=== PATIENT | female | born 1955 | race Caucasian/White ===

== ENCOUNTER 2016-06-22 09:21 | Outpatient (CLI) | payer MEDICARE, MEDICAID ==
[2016-06-22 10:53] LABS: ALT (SGPT) 12 U/L (0-55); AST (SGOT) 17 U/L (5-34); Albumin 3.9 g/dL (3.4-4.8); Alkaline Phosphatase 145 U/L (40-150); Anion Gap 13 mmol/L (10-20); BUN (Urea Nitrogen) 13 mg/dL (9.8-20.1); Bilirubin, Total 0.6 mg/dL (0.2-1.2); Calc. Creatinine Clearance 0 mL/min (70-130); Calcium 9.8 mg/dL (7.8-10.44); Carbon Dioxide 27 mmol/L (23-31); Cardiac Risk 2.6 (Less than 4.5); Chloride 106 mmol/L (98-107); Cholesterol 125 mg/dL (< 200 Desired); Estimated GFR-MDRD 67; Globulin 2.4 g/dL (2.4-3.5); Glucose 77 mg/dL (80-115); HDL Cholesterol 48 mg/dL (>60 Neg Risk); LDL Cholesterol, Calculated 62 mg/dL; Potassium 3.9 mmol/L (3.5-5.1); Protein, Total 6.3 g/dL (5.8-8.1); Sodium 142 mmol/L (136-145); Triglycerides 76 mg/dL (Less than 150)
[2016-06-22 10:54] LABS: #Basophils 0.1 thou/uL (0.0-0.2); #Eosinphils 0.1 thou/uL (0.0-0.7); #Lymphocytes 1.8 thou/uL (1.20-3.40); #Monocytes 0.5 thou/uL (0.11-0.59); #Neutrophils 4.2 thou/uL (1.40-6.50); %Basophils 1.1 % (0.0-1.0); %Eosinophils 1.8 % (0.0-10.0); %Lymphocytes 27.2 % (21.0-51.0); %Monocytes 7.2 % (0.0-10.0); %Neutrophils 62.8 % (42.0-75.0); Hemoglobin 12.1 g/dL (12.0-16.0); Mean Corpuscular HGB CONC 32.2 g/dL (32.0-36.0); Mean Corpuscular Volume 80.9 fl (81.0-99.0); Mean Platelet Volume 8.6 fL (7.4-10.4); Platelet Count 223 thou/uL (130-400); RBC Distribution Width 14.9 % (11.5-14.5); Red Blood Cell (RBC) Count 4.66 mill/uL (4.20-5.40); White Blood Cell (WBC) Count 6.7 thou/uL (4.8-10.8)
[2016-06-22 11:24] LABS: Hemoglobin A1c 6.3 % (4.0-6.0)
== END 2016-06-22 09:22 | disposition home or self-care (01) ==
LOC: HPCALD 09:21
PROVIDERS: ATTEND Family Medicine
DX: E78.5 Hyperlipidemia, unspecified (principal); E11.9 Type 2 diabetes mellitus without complications; I10 Essential (primary) hypertension; E53.8 Deficiency of other specified B group vitamins
CPT/HCPCS: 36415; 80053; 80061; 82607; 83036; 85025

== ENCOUNTER 2017-01-11 16:49 | Emergency (ER) | payer MEDICARE, MEDICAID ==
[2017-01-11 17:37] LABS: CKMB 4.4 ng/mL (0-6.6); Troponin I Less than 0.010 ng/mL (< 0.028)
[2017-01-11 17:48] LABS: Bilirubin Negative (Negative); Blood, Urine Negative (Negative); Clarity Clear (Clear); Glucose, Urine (Dipstick) 100 mg/dL (Negative); Leukocyte Trace (Negative); Nitrite Negative (Negative); Protein, Urine (Dipstick) Negative (Neg-Trace); Specific Gravity, Urine 1.015 (1.005-1.030); Urobilinogen 0.2 mg/dL (0.2-1.0); pH, Urine 6.5 (5.0-9.0)
[2017-01-11 17:59] LABS: Bacteria/HPF 1+ HPF (None Seen); RBC/HPF 0-3 HPF (0-3); Renal Epithelial None Seen HPF (0-3); Squamous Epithelial None Seen HPF (0-3); Transitional Epithelial NONE SEEN HPF (0-3); WBC/HPF 0-3 HPF (0-3)
[2017-01-11 18:00] LABS: Crystals/HPF None Seen HPF (Negative); Hyaline Casts/LPF NONE SEEN LPF (0-3 Hyaline); Other Casts/LPF None Seen LPF (0-3 Hyaline); Oval Fat Bodies/HPF None Seen HPF (None Seen); Sperm/HPF None Seen HPF (None Seen); Trichomonas/HPF None Seen HPF (None Seen); Yeast-All Forms None Seen HPF (None Seen)
[2017-01-11] MEDS ORDERED: traMADol HCl 50 MG TAB ONE (18:10)
--- NOTE | 2017-01-11 18:23 | RAD ---
LEFT KNEE FOUR VIEWS 01/11/17 There is no large joint effusion or obvious fracture. Medial joint space narrowing and osteophytes ar e present. A rounded bony calcification posterior to the knee could be a loose body in the joint. It could be a synovial chondroma as well. The patellofemoral joint shows degenerative change. IMPRESSION: Moderately severe degenerative changes but no acute traumatic finding. POS: HOME
--- NOTE | 2017-01-11 18:36 | RAD ---
LEFT RIBS WITH PA CHEST 01/11/17 Comparison is made with prior studies, including rib films from February 2013. Fractures of at least the left 6th and 7th, possibly 8th, ribs are noted but they appear old and are seen on the prior study. There were no definite new fractures identified, however, the patient's oste openia is such that it could easily mask subtle injuries. The heart is mildly enlarged but no more so than before. The lungs are clear. No infiltrate, effusion or pneumothorax was seen. Severe degenerative changes are see in the left glenohumeral joint. IMPRESSION: Old fractures noted but no acute changes were appreciated. POS: HOME
== END 2017-01-11 18:17 | disposition home or self-care (01) ==
LOC: BURERS 16:49
DX: S22.42XA Multiple fractures of ribs, left side, initial encounter for closed fracture (principal); E78.5 Hyperlipidemia, unspecified; M81.0 Age-related osteoporosis without current pathological fracture; E11.9 Type 2 diabetes mellitus without complications; I10 Essential (primary) hypertension; M19.90 Unspecified osteoarthritis, unspecified site; F41.9 Anxiety disorder, unspecified; F32.9 Major depressive disorder, single episode, unspecified; Z79.84 Long term (current) use of oral hypoglycemic drugs; Z79.899 Other long term (current) drug therapy; W19.XXXA Unspecified fall, initial encounter
CPT/HCPCS: 81003; 81015; 82553; 84484; 93005

== ENCOUNTER 2017-01-26 10:06 | Outpatient (CLI) | payer MEDICARE, MEDICAID ==
--- NOTE | 2017-01-26 14:12 | RAD ---
LEFT HAND THREE VIEWS: HISTORY: Fall. Left hand injury. FINDINGS: Degenerative changes and small heterotopic foci of calcification are apparent. No acute fracture, di slocation, or metallic foreign bodies are visible. IMPRESSION: No acute osseous abnormalities are demonstrated. POS: [facility]
== END 2017-01-26 10:07 | disposition home or self-care (01) ==
LOC: BURRAD 10:06
PROVIDERS: ATTEND Family Medicine
DX: M79.642 Pain in left hand (principal)

== ENCOUNTER 2017-12-21 16:32 | Outpatient (CLI) | payer MEDICARE, OTHER ==
--- NOTE | 2017-12-25 08:08 | RAD ---
LUMBAR SPINE 3 VIEWS: Date: 12/22/17 Three views are compared with the 04/19/12 study. While there are degenerative changes throughout the spine consisting of osteophytes, all of them have grown larger over time. There is evidence of degen erative disc disease, particularly at L2-L3 and L3-L4. The superior end plate of L4 is irregular and sclerotic, a new finding since 2012. This potentially c ould be due to impending compression. Infection seems less likely. Degenerative change might cause th is. In view of the patient's symptoms, I would recommend doing a MRI for follow-up of this finding. F acet arthritis is prominent in the lower lumbar spine. The SI joints were symmetrical. There is very slight curvature to the spine convex left. IMPRESSION: 1. Interval increase in osteophyte sizes and multilevel degenerative disc disease. 2. Irregular slightly sclerotic superior end plate of L4, a new finding. Most likely due to a mild c ompression. Given the symptoms, MRI is suggested. CODE T. POS: HOME
== END 2017-12-21 16:33 | disposition home or self-care (01) ==
LOC: BURRAD 16:32
PROVIDERS: ATTEND Nurse Practitioner Family
DX: M51.16 Intervertebral disc disorders with radiculopathy, lumbar region (principal); M25.78 Osteophyte, vertebrae
CPT/HCPCS: 72100

== ENCOUNTER 2018-03-06 15:01 | Outpatient (CLI) | payer MEDICARE, MEDICAID ==
--- NOTE | 2018-03-06 19:53 | RAD ---
LEFT KNEE FOUR VIEWS: 03/06/2018 COMPARISON: 01/11/2017 FINDINGS: Degenerative changes are prominent in the knee, as before, with medial joint space narrowing and sign ificant osteophytes. The appearance is fairly similar, with only minor changes over time. No fractu re or large joint effusion is seen. As before, there is a clump of calcifications in the popliteal r egion, though to be either loose bodies or synovial chondroma. This has perhaps calcified a little m ore and become a little more prominent since 2017, but it still has a rather benign appearance. Demetri r-the-less, if any procedure were planned on this patient's knee, due to her severe arthritis, these could be looked at as well. IMPRESSION: 1. Moderately severe osteoarthritis, similar to 2017. 2. Popliteal calcific densities again noted, slightly larger. Loose bodies or synovial chondroma se em most likely. POS: HOME
== END 2018-03-06 15:02 | disposition home or self-care (01) ==
LOC: BURRAD 15:01
PROVIDERS: ATTEND Family Medicine
DX: M25.562 Pain in left knee (principal); M17.12 Unilateral primary osteoarthritis, left knee; I77.89 Other specified disorders of arteries and arterioles

== ENCOUNTER 2020-09-07 10:01 | Outpatient (CLI) | payer MEDICARE, MEDICAID ==
[~2020-09-07 10:01] MED LIST: Iopamidol 370 76% 100 ML VIAL ONE
== END 2020-09-07 10:02 | disposition home or self-care (01) ==
LOC: BURCT 10:01
PROVIDERS: ATTEND Family Medicine
DX: R91.8 Other nonspecific abnormal finding of lung field (principal)
CPT/HCPCS: 71260; 82565; Q9967

== ENCOUNTER 2021-01-09 07:42 | Emergency (ER) | payer MEDICARE, OTHER ==
[2021-01-09] MEDS ORDERED: Ibuprofen 200 MG TAB ONE (08:22)
[2021-01-09] MEDS ORDERED: Acetaminophen 325 MG TAB ONE (08:22)
[2021-01-09] MEDS ORDERED: Metoclopramide HCl 10 MG TAB ONE (11:27)
== END 2021-01-09 09:03 | disposition home or self-care (01) ==
LOC: BURERS 07:42
DX: S22.31XA Fracture of one rib, right side, initial encounter for closed fracture (principal); I10 Essential (primary) hypertension; E78.00 Pure hypercholesterolemia, unspecified; W19.XXXA Unspecified fall, initial encounter
CPT/HCPCS: 71250

== ENCOUNTER 2021-04-08 09:18 | Outpatient (CLI) | payer MEDICARE, OTHER ==
[2021-04-08] MEDS ORDERED: Iopamidol 370 76% 100 ML VIAL FS ONE (09:19)
== END 2021-04-08 09:19 | disposition home or self-care (01) ==
LOC: BURCT 09:18
PROVIDERS: ATTEND Family Medicine
DX: Z01.818 Encounter for other preprocedural examination (principal); R91.8 Other nonspecific abnormal finding of lung field
CPT/HCPCS: 36415; 71260; 82565; Q9967

== ENCOUNTER 2021-07-28 11:46 | Outpatient (CLI) | payer MEDICARE, OTHER | END 2021-07-28 11:47 | disposition home or self-care (01) | LOC: BURRAD 11:46 | PROVIDERS: ATTEND Family Medicine | DX: R07.81 Pleurodynia (principal) ==

== ENCOUNTER 2021-11-23 08:52 | Outpatient (CLI) | payer OTHER | END 2021-11-23 08:53 | disposition home or self-care (01) | LOC: BURRAD 08:52 | PROVIDERS: ATTEND Family Medicine | DX: M54.31 Sciatica, right side (principal); M25.50 Pain in unspecified joint; M16.0 Bilateral primary osteoarthritis of hip; M47.816 Spondylosis without myelopathy or radiculopathy, lumbar region | CPT/HCPCS: 72110 ==

== ENCOUNTER 2021-11-26 21:14 | Emergency (ER) | payer OTHER ==
[2021-11-26 21:59] LABS: #Basophils 0.1 thou/uL (0.0-0.2); #Monocytes 0.3 thou/uL (0.11-0.59); %Basophils 0.6 % (0.0-1.0); %Lymphocytes 12.3 % (21.0-51.0); %Monocytes 3.5 % (0.0-10.0); %Neutrophils 83.6 % (42.0-75.0); Hemoglobin 13.6 g/dL (12.0-16.0); Mean Corpuscular Hemoglobin 27.6 pg (27.0-31.0); Mean Corpuscular Volume 86.1 fL (78.0-98.0); Mean Platelet Volume 8.3 fL (7.4-10.4); Platelet Count 217 thou/uL (130-400); RBC Distribution Width 13.9 % (11.5-14.5); Red Blood Cell (RBC) Count 4.94 mill/uL (4.20-5.40); White Blood Cell (WBC) Count 8.3 thou/uL (4.8-10.8)
[2021-11-26 22:11] LABS: Bilirubin Negative (Negative); Blood, Urine Negative (Negative); Clarity Clear (Clear); Glucose, Urine (Dipstick) >=1000 mg/dL (Negative); Ketone, Urine Negative (Negative); Leukocyte Negative (Negative); Nitrite Negative (Negative); Protein, Urine (Dipstick) Negative (Neg-Trace); Urobilinogen 0.2 mg/dL (Less than 2)
[2021-11-26 22:12] LABS: ALT (SGPT) 24 U/L (8-55); AST (SGOT) 26 U/L (5-34); Albumin 3.9 g/dL (3.4-4.8); Alkaline Phosphatase 129 U/L (40-110); Anion Gap 15 mmol/L (10-20); BUN (Urea Nitrogen) 20 mg/dL (9.8-20.1); Bilirubin, Total 0.4 mg/dL (0.2-1.2); Calc. Creatinine Clearance 0 mL/min (70-130); Calcium 9.5 mg/dL (7.8-10.44); Carbon Dioxide 22 mmol/L (23-31); Chloride 104 mmol/L (98-107); Estimated GFR 61; Globulin 2.3 g/dL (2.4-3.5); Glucose 267 mg/dL (80-115); Potassium 4.1 mmol/L (3.5-5.1); Protein, Total 6.2 g/dL (5.8-8.1); Sodium 137 mmol/L (136-145)
[2021-11-26 22:23] LABS: Specific Gravity, Urine Less/Equal 1.005 (1.005-1.030)
== END 2021-11-26 22:46 | disposition home or self-care (01) ==
LOC: BURERS 21:14
DX: E11.65 Type 2 diabetes mellitus with hyperglycemia (principal); I10 Essential (primary) hypertension; Z79.899 Other long term (current) drug therapy; Z79.84 Long term (current) use of oral hypoglycemic drugs
CPT/HCPCS: 36416; 71045; 80053; 81003; 83880; 84484; 85025; 93005; 94760; 96360

== ENCOUNTER 2022-10-11 10:44 | Outpatient (CLI) | payer OTHER | END 2022-10-11 10:45 | disposition home or self-care (01) | LOC: BURRAD 10:44 | PROVIDERS: ATTEND Family Medicine | DX: M54.50 Low back pain, unspecified (principal); M25.552 Pain in left hip; M47.816 Spondylosis without myelopathy or radiculopathy, lumbar region; M47.814 Spondylosis without myelopathy or radiculopathy, thoracic region; M16.12 Unilateral primary osteoarthritis, left hip | CPT/HCPCS: 72070; 72100 ==

== ENCOUNTER 2022-12-10 11:52 | Emergency (ER) | payer OTHER | END 2022-12-10 12:37 | disposition home or self-care (01) | LOC: BURERS 11:52 | DX: S01.81XA Laceration without foreign body of other part of head, initial encounter (principal); E11.9 Type 2 diabetes mellitus without complications; I10 Essential (primary) hypertension; Z79.84 Long term (current) use of oral hypoglycemic drugs; Z79.82 Long term (current) use of aspirin; W01.198A Fall on same level from slipping, tripping and stumbling with subsequent striking against other object, initial encounter | CPT/HCPCS: 12011 ==